=== PATIENT | female | born 1955 | race American Indian/Alaskan Native ===

== ENCOUNTER 2017-11-20 09:28 | Emergency (ER) | payer BC, MEDICARE ==
[2017-11-20 09:39] VITALS: BP 154/89
--- NOTE | 2017-11-20 10:15 | EDM.PDOC ---
ED HPI GENERAL MEDICAL PROBLEM - General Chief Complaint: Upper Extremity Injury/Pain Stated Complaint: CHEST DISCOMFORT Time Seen by Provider: 11/20/17 09:50 Source of Information: Reports: Patient History Limitations: Reports: No Limitations - History of Present Illness INITIAL COMMENTS - FREE TEXT/NARRATIVE: This 61 yo female patient reports to the ED with a 2-3 day history of intermittent chest pain, pain going to her right posterior shoulder, pain going down her left arm and pain in her left posterior leg. The patient reports when she goes up the stairs her symptoms get worse. The patient reports that she took a baby aspirin last night, but has not take anything today. The patient has a history of leukemia (with STEM cell transplant), diabetes, hypothyroid and hyperlipidemia. The patient reports that she has recently joined a gym, but does not think she is doing more exercise than prior to joining the gym. Onset Date: 11/18/17 Duration: Intermittent Location: Reports: Chest, Upper Extremity, Left, Lower Extremity, Left Quality: Reports: Dull, Pressure Severity: Moderate Improves with: Reports: Rest Worsens with: Reports: Other (exercise ) Associated Symptoms: Reports: Chest Pain - Related Data Allergies Allergy/AdvReac Type Severity Reaction Status Date / Time atorvastatin calcium Allergy Muscle Verified 11/20/17 09:35 [From Lipitor] Aches omeprazole [From Prilosec] Allergy Lightheaded Verified 11/20/17 09:35 ness omeprazole magnesium Allergy Lightheaded Verified 11/20/17 09:35 [From Prilosec] ness rosuvastatin calcium Allergy Muscle Verified 11/20/17 09:35 [From Crestor] Aches Home Meds: Home Meds Calcium Carbonate/Vitamin D3 [Calcium 600 + Vit D Tablet] 1 tab PO BID 08/02/14 [History] Levothyroxine Sodium 50 mcg PO DAILY 08/02/14 [History] Simvastatin 40 mg PO BEDTIME 08/02/14 [History] metFORMIN HCl [Metformin HCl] 1,000 mg PO BID 08/02/14 [History] Ferrous Sulfate [Jony-in-Swetha] 25 mg PO DAILY 11/20/17 [History] SitaGLIPtin [Januvia] 100 mg PO DAILY 11/20/17 [History] Past Medical History Endocrine/Metabolic History: Reports: Diabetes, Type II Hematologic History: Reports: Other (See Below) Other Hematologic History: stem cell transplant Social & Family History - Family History Family Medical History: Noncontributory - Tobacco Use Smoking Status *Q: Never Smoker Second Hand Smoke Exposure: No - Caffeine Use Caffeine Use: Reports: Coffee - Alcohol Use Days Per Week of Alcohol Use: 0 - Recreational Drug Use Recreational Drug Use: No Review of Systems - Review of Systems Review Of Systems: ROS reveals no pertinent complaints other than HPI. ED EXAM, GENERAL - Physical Exam Exam: See Below Exam Limited By: No Limitations General Appearance: Alert, WD/WN, No Apparent Distress Eye Exam: Bilateral Eye: EOMI, Normal Inspection, PERRL Ears: Normal External Exam, Normal Canal, Hearing Grossly Normal, Normal TMs Nose: Normal Inspection, Normal Mucosa, No Blood Throat/Mouth: Normal Inspection, Normal Lips, Normal Teeth, Normal Gums, Normal Oropharynx, Normal Voice, No Airway Compromise Head: Atraumatic, Normocephalic Neck: Normal Inspection, Supple, Non-Tender, Full Range of Motion Respiratory/Chest: No Respiratory Distress, Lungs Clear, Normal Breath Sounds, No Accessory Muscle Use, Chest Non-Tender Cardiovascular: Normal Peripheral Pulses, Regular Rate, Rhythm, No Gallop, No JVD, No Murmur, No Rub GI/Abdominal: Normal Bowel Sounds, Soft, Non-Tender, No Organomegaly, No Distention, No Abnormal Bruit, No Mass (Female) Exam: Deferred Rectal (Female) Exam: Deferred Back Exam: Normal Inspection, Full Range of Motion, NT Extremities: Normal Inspection, Normal Range of Motion, Non-Tender, Normal Capillary Refill, Pedal Edema (right lower extremity) Neurological: Alert, Oriented, CN II-XII Intact, Normal Cognition, Normal Gait, Normal Reflexes, No Motor/Sensory Deficits Psychiatric: Normal Affect, Normal Mood Skin Exam: Warm, Dry, Intact, Normal Color, No Rash Lymphatic: No Adenopathy Course - Vital Signs Last Recorded V/S: Last Vital Signs Temp 36.6 C 11/20/17 09:36 Pulse 78 11/20/17 09:36 Resp 14 11/20/17 09:36 BP 154/89 H 11/20/17 09:36 Pulse Ox 99 11/20/17 09:36 - Orders/Labs/Meds Orders: Active Orders 24 hr Category Date Time Status EKG Documentation Completion [RC] URGENT Care 11/20/17 10:07 Active Chest 1V Frontal [CR] Urgent Exams 11/20/17 10:07 Taken Labs: Laboratory Tests 11/20/17 11/20/17 11/20/17 Range/Units 10:15 10:15 10:15 WBC 5.9 (5.0-10.0) 10^3/uL RBC 4.05 L (4.2-5.4) 10^6/uL Hgb 12.4 (12.0-16.0) g/dL Hct 35.7 L (37.0-47.0) % MCV 88.1 D (80-100) fL MCH 30.6 (27.0-34.0) pg MCHC 34.7 (33.0-35.0) g/dL Plt Count 232 (150-450) 10^3/uL Neut % (Auto) 50.2 (42.2-75.2) % Lymph % (Auto) 36.1 (20.5-50.1) % [place] % (Auto) 11.3 H (2-8) % Eos % (Auto) 1.7 (1.0-3.0) % Baso % (Auto) 0.7 (0.0-1.0) % D-Dimer, Quantitative < 100 (0-400) ng/mL Sodium 128 L (135-145) mmol/L Potassium 4.1 (3.6-5.0) mmol/L Chloride 94 L (101-111) mmol/L Carbon Dioxide 24.0 (21.0-31.0) mmol/L Anion Gap 14.1 BUN 11 (7-18) mg/dL Creatinine 0.7 (0.6-1.3) mg/dL Est Cr Clr Drug Dosing 78.01 mL/min Estimated GFR (MDRD) > 60 BUN/Creatinine Ratio 15.71 Glucose 179 H (74-105) mg/dL Calcium 9.2 (8.4-10.2) mg/dl Total Bilirubin 0.8 (0.2-1.0) mg/dL AST 32 (10-42) IU/L ALT 30 (10-60) IU/L Alkaline Phosphatase 55 (42-121) IU/L Troponin I < 0.02 (0.00-0.02) ng/ml Total Protein 7.5 (6.7-8.2) g/dl Albumin 4.3 (3.2-5.5) g/dl Globulin 3.2 Albumin/Globulin Ratio 1.34 Meds: Medications Discontinued Medications Generic Name Dose Route Start Last Admin Trade Name Archie PRN Reason Stop Dose Admin Aspirin 324 mg 11/20/17 10:08 11/20/17 10:18 Aspirin PO 11/20/17 10:09 324 mg ONETIME ONE Administration Departure - Departure Time of Disposition: 11:00 Disposition: Home, Self-Care 01 Condition: Fair Clinical Impression: Costochondral chest pain - Discharge Information Instructions: Chest Wall Pain, [id number] Forms: ED Department Discharge Care Plan Goals: The patient and spouse were advised of the examination, lab, x-ray and EKG results during the visit. The patient was encouraged to do some gentle stretching exercises. If the patient has any additional symptoms or concerns, the patient should follow-up with her primary care facility or return to the emergency department. - My Orders Last 24 Hours: My Active Orders 11/20/17 10:07 EKG Documentation Completion [RC] URGENT Chest 1V Frontal [CR] Urgent - Assessment/Plan Last 24 Hours: My Active Orders 11/20/17 10:07 EKG Documentation Completion [RC] URGENT Chest 1V Frontal [CR] Urgent
[2017-11-20] MEDS: Aspirin 81 MG Tab.Chew PO ONE (10:18)
[2017-11-20 10:43] LABS: CHLORIDE,CL 94 mmol/L (101-111); SODIUM,NA 128 mmol/L (135-145)
--- NOTE | 2017-11-20 16:24 | EKG ---
11/20/2017 - IMTIAZ RUIZ - FINDINGS: EKG, per my reading, shows sinus rhythm at the rate of 70. [facility] /[id number]
--- NOTE | 2017-11-22 09:27 | CR ---
Clinical history: 61-year-old female chest pain. Interpretation: Negative exam. External vehicle monitor technician leads. Normal cardiac silhouette and bony thorax. No cephalization of vascular flow, signs of alveolar edema or dependent pleural effusion. No lung mass, hilar lymphadenopathy or focal lobar pneumonia. No atelectasis/collapse. No pneumothorax.
== END 2017-11-20 11:08 | disposition home or self-care (01) ==
LOC: DL.ED 09:28
DX: M94.0 Chondrocostal junction syndrome [Tietze] (principal); E11.9 Type 2 diabetes mellitus without complications; Z79.899 Other long term (current) drug therapy; Z79.84 Long term (current) use of oral hypoglycemic drugs; Z88.8 Allergy status to other drugs, medicaments and biological substances
CPT/HCPCS: 36415; 71045; 80053; 84484; 85025; 85379; 93005; 99285; A9270

== ENCOUNTER 2025-03-02 20:25 | Emergency (ER) | payer MEDICARE, BC ==
[2025-03-02 20:37] VITALS: BP 162/85; PULSE 89
[2025-03-02] MEDS ORDERED: Sodium Chloride 0.9% 10 ML Syringe FLUSH PRN (20:50)
[2025-03-02 21:05] LABS: BASOPHILS PERCENT AUTO 0.7 % (0.0-1.0); EOSINOPHILS PERCENT AUTO 2.7 % (1.0-3.0); HEMOGLOBIN 13.2 g/dL (12.0-16.0); LYMPHOCYTES PERCENT AUTO 42.3 % (20.5-50.1); MEAN CORPUSCULAR HEMOGLOBIN 30.3 pg (27.0-34.0); MEAN CORPUSCULAR HGB CONC 33.8 g/dL (33.0-35.0); MEAN CORPUSCULAR VOLUME 89.4 fL (80-100); MONOCYTES PERCENT AUTO 13.7 % (2-8); NEUTROPHILS PERCENT AUTO 40.6 % (42.2-75.2); PLATELET COUNT,PLT 219 10^3/uL (150-450); RED BLOOD CELL COUNT 4.36 10^6/uL (4.2-5.4); WHITE BLOOD CELL COUNT,WBC 5.8 10^3/uL (5.0-10.0)
[2025-03-02 21:10] LABS: APPEARANCE,URINE CLEAR (CLEAR); BILIRUBIN,URINE NEGATIVE (NEGATIVE); COLOR,URINE YELLOW (YELLOW); GLUCOSE,URINE 500 (NEGATIVE); KETONES,URINE NEGATIVE (NEGATIVE); LEUKOCYTE ESTERASE,URINE NEGATIVE (NEGATIVE); NITRITE,URINE NEGATIVE (NEGATIVE); OCCULT BLOOD,URINE NEGATIVE (NEGATIVE); PH,URINE 5.5 (5.0-9.0); PROTEIN,URINE NEGATIVE (NEGATIVE); UROBILINOGEN,URINE 0.2 mg/dL (0.2-1.0)
[2025-03-02] MEDS: Lactulose Soln 10 GM/15 ML 30 ML UD Cup PO ONE (21:27)
[2025-03-02 21:28] LABS: LACTIC ACID 0.9 mmol/L (0.4-2.0)
[2025-03-02 21:31] LABS: ALANINE AMINOTRANSFERASE,ALT 24 U/L (14-59); ALBUMIN 3.7 g/dL (3.4-5.0); ALKALINE PHOSPHATASE 64 U/L (46-116); ASPARTATE AMNIOTRANSFERASE,AST 17 U/L (15-37); BILIRUBIN TOTAL 0.3 mg/dL (0.2-1.0); BLOOD UREA NITROGEN,BUN 21 mg/dL (7-18); CALCIUM 9.4 mg/dL (8.5-10.1); CARBON DIOXIDE,CO2 28 mmol/L (21-32); CHLORIDE,CL 100 mmol/L (98-107); CREATININE 0.84 mg/dL (0.55-1.02); EST CRCL DRUG DOSING (CG) 56.08 mL/min; GLUCOSE RANDOM 105 mg/dL (70-99); PROTEIN TOTAL,TP 7.4 g/dL (6.4-8.2); SODIUM,NA 135 mmol/L (136-145)
[2025-03-02 21:32] LABS: C-REACTIVE PROTEIN < 0.50 ng/dL (<=0.50); ESTIMATED GFR 75 mL/min (>=60)
== END 2025-03-02 21:56 | disposition home or self-care (01) ==
LOC: DL.ED 20:25
DX: K59.04 Chronic idiopathic constipation (principal); E11.9 Type 2 diabetes mellitus without complications; E66.9 Obesity, unspecified; E78.00 Pure hypercholesterolemia, unspecified; Z88.8 Allergy status to other drugs, medicaments and biological substances; Z79.899 Other long term (current) drug therapy; Z79.890 Hormone replacement therapy; Z79.84 Long term (current) use of oral hypoglycemic drugs; Z68.27 Body mass index [BMI] 27.0-27.9, adult
CPT/HCPCS: 36415; 74018; 80053; 81003; 83605; 85025; 86140; 99284; A9270-GY